=== PATIENT | male | born 1945 | race Caucasian/White ===

== ENCOUNTER 2017-06-11 13:33 | Emergency (ER) | payer MEDICARE ==
[~2017-06-11] VITALS: Ht 177.8 cm; Wt 100.9 kg
[~2017-06-11 13:33] MED LIST: CARB400T7 PO; CLIN-78 PO; CLOB15CR3 TOP; HYDR50TA3 PO; LOV30 SUBQ; METO-369 PO; PREG25CA PO; RES30 PO; ROSU40TA PO; WARF4TAB6 PO
[2017-06-11 13:43] VITALS: BP 142/72; PULSE 45; RESP 18; O2SAT 96
--- NOTE | 2017-06-11 13:49 | ED.REPORT ---
HPI-Chest Pain 40 and Over Date of Service Jun 11, 2017 ED Provider: Castillo Mueller MD The pt is a 71 y/o male with a hx of A-fib (on Coumadin), NSTEMI, bicuspid aortic valve, HTN, and CVA who presents to the ED from urgent care complaining of non-radiating, intermittent left sided chest pain, onset 4 days ago. His pain comes on randomly and is not relieved by any specific factors. He describes the pain as "vibrations" that lasts 2-3 minutes. He is not experiencing any pain currently in the ED. Associated sx include shortness of breath a week ago. His dyspnea is exacerbated by lying down and mildly relieved by sitting up. He has also noticed significant increase in shortness of breath with exertion or walking a short distance. He also reports productive cough with clear sputum. He denies hemoptysis, diaphoresis, lower extremity edema and weight change. Nursing Notes Stated Complaint: BREATHING/EKG/SENT BY Chief Complaint: Chest Pain Nursing Notes Reviewed: Yes (ITC, [place] [employer] (PIROX) not reconciled) Allergies: Coded Allergies: Procaine HCl (Verified Allergy, Severe, 08/22/16) facial swelling acetaminophen (Verified Allergy, Severe, 08/22/16) prilocaine (Verified Allergy, Severe, 08/22/16) Scheduled Carbamazepine ER (Carbamazepine ER) 400 Mg Tab.er.12h 400 MG PO Q12 Clindamycin (Clindamycin) 300 Mg Capsule 300 MG PO QID Clobetasol Propionate/Emoll (Clobetasol Emollient 0.05% Crm) 15 Gm Cream..g. 1 APPL TOP BID Enoxaparin (Lovenox) 30 Mg/0.3 Ml Syringe 30 MG SUBQ DAILY Furosemide (Furosemide) 20 Mg Tab 20 MG PO DAILY Hydrochlorothiazide (Hydrochlorothiazide) 50 Mg Tablet 50 MG PO DAILY Metoprolol Succinate ER (Metoprolol Succinate ER) 50 Mg Tab.er.24h 50 MG PO DAILY Potassium Chloride ER (Potassium Chloride ER) 10 Meq Tablet 10 MEQ PO DAILY TAKE WITH FOOD Pregabalin (Lyrica) 25 Mg Capsule 25 MG PO BID Rosuvastatin Calcium (Crestor) 40 Mg Tablet 40 MG PO DAILY Warfarin Sodium (Warfarin Sodium) 4 Mg Tablet 4 MG PO DAILY Scheduled PRN Temazepam (Temazepam) 30 Mg Cap 30 MG PO HS PRN PRN For Insomnia General Time Seen by MD: 13:58 Chief Complaint Chest pain Hx Obtained From: Patient Arrived By: Walk-in Sudden in Onset?: Yes Onset Occurred: 4 days ago Symptom Duration: Intermittent Location: : Chest left (describes it as "vibrations") Radiation: : Does not radiate Severity: Current: No pain currently Severity: Maximum: Moderate Past Medical History Past Medical History depression multilevel foraminal stenosis bicuspid aortic valve seizures atrial flutter, paroxysmal hypertension dyslipidemia ascending aortic aneurysm diverticulosis CVA nephrolithiasis Hx of NSTEMI melanoma Past Surgical History status post mechanical aortic valve replacement bilateral foot surgery left arm surgery Reports: Tonsillectomy Smoking History Smoker Current Status UNK Social History Alcohol Use: Denies alcohol use Drug Use: THC Ambulatory Status Independent Review of Systems Denies: weight change Respiratory: Reports: Dyspnea on exertion, Prod cough, clear, Shortness of breath, Denies: Prod cough, bloody Cardiovascular: Reports: Chest pain, Denies: Edema Skin: Denies Diaphoresis Complete sys rev & neg: except as marked. Physical Exam Initial Vital Signs Vital Signs (First) Date Time Temp Pulse Resp B/P Pulse Ox O2 Delivery O2 Flow Rate FiO2 06/11/17 13:43 36.8 45 18 142/72 96 06/11/17 14:38 Room Air Initial VS: Reviewed, Vital signs normal (bradycardic) Head / Eyes: Atraumatic, Normocephalic Extremities: Vascular intact, Neuro intact, No swelling, No tenderness Skin: Warm, Dry, No cyanosis Neurologic: Alert, Oriented, Nonfocal General/Constitutional: Awake, Alert, No acute distress, Well appearing, Cooperative Respiratory / Chest: Atraumatic, Breath sounds = bilat, No rales, No rhonchi, No wheezing Crackles at the bases bilaterally. No tachypnea Cardiovascular: Heart rate NL, No gallop, No rubs Heart Rate / Rhythm: Positive: Irregular rhythm No lower extremity edema Mild mechanical murmur Abdomen: Atraumatic, Soft, Non-tender, No guarding, No rebound Neck: Atraumatic, Supple, Full range of motion, No swelling, Non-tender, No JVD Interpretation & Diagnostics Lab Results Interpretation Result Diagram: 06/11/17 1405 06/11/17 1405 Test 06/11/17 14:05 White Blood Count 7.4th/mm3 (3.8-10.1) Red Blood Count 4.25mil/mm3 (4.40-5.80) Hemoglobin 13.6g/dL (13.8-17.2) Hematocrit 40.1% (41.0-50.0) Mean Corpuscular Volume 94.4fL (81-100) Mean Corpuscular Hemoglobin 32.0pg (27.0-35.0) Mean Corpuscular Hemoglobin Concent 33.9% (32.0-37.0) Red Cell Distribution Width 14.5% (12.3-15.4) Platelet Count 186bil/L (150-400) Neutrophils (%) (Auto) 56.3% (40-74) Lymphocytes (%) (Auto) 27.2% (14-46) Monocytes (%) (Auto) 10.8% (4-12) Eosinophils (%) (Auto) 4.9% (0-5) Basophils (%) (Auto) 0.7% (0-3) Prothrombin Time 22.3sec (8.1-12.5) Prothromb Time International Ratio 2.05ratio Sodium Level 141mEq/L (134-144) Potassium Level 3.5mEq/L (3.5-5.2) Chloride Level 100mEq/L (97-108) Carbon Dioxide Level 23mmol/L (18-29) Blood Urea Nitrogen 18mg/dL (8-27) Creatinine 0.98mg/dL (0.76-1.27) Estimat Glomerular Filtration Rate 80mL/min (>59) Glucose Level 114mg/dL (60-99) Calcium Level 9.2mg/dL (8.5-10.1) Magnesium Level 2.2mg/dL (1.6-2.6) Total Bilirubin 0.5mg/dL (0.0-1.2) Aspartate Amino Transf (AST/SGOT) 18U/L (0-50) Alanine Aminotransferase (ALT/SGPT) 15U/L (0-44) Alkaline Phosphatase 91U/L (25-160) Troponin T < 0.010ug/L (0.0-0.011) Pro-B-Type Natriuretic Peptide 617.8pg/mL (0-376) Total Protein 8.7g/dL (6.4-8.4) Albumin 4.3g/dL (3.4-5.0) Lab Results Interpretation: CBC normal CMP normal INR slightly subtherapeutic for mechanical valve BMP elevated, but not severely so ECG Interpretation ECG Interpretation: A-fib with slow ventricular response. Rate 41. RBBB and Left ventricular block. Improvement from last ECG in 2009 which showed a left bundle branch blck. Time: 13:58 Interpreted by: ED physician X-Ray Chest Interpretation Chest Xray Interpretation: IMPRESSION: ? Mild congestive heart failure. Dictated by: Tristian Amezquita M.D. on 06/11/2017 at 14:24 Approved by: Tristian Amezquita M.D. on 06/11/2017 at 14:25 View: Portable, 1 view Interpretation / Wet Read by: Interpret - Radiologist Re-Eval/Medical Decision Med Decision/Clinical Course This is a 71-year-old male history of valvular disease test. Valve replacement he presents complaining of some increasing dyspnea, nocturnal dyspnea, dyspnea on exertion concerning for possible congestive heart failure. He has also had a very atypical transient chest discomfort lasting only seconds. He is anticoagulated on warfarin. 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 Carrera and just recently (02/2017) had an echocardiogram with a preserved EF and adequate valve function, but with dilated right ventricle, and an inability to evaluate for diastolic dysfunction for technical reasons. On examination clinically appears well and notes tremors. He is ambulatory,'s vitals are notable for A. fib with slow ventricular response on metoprolol, he has a few scattered rails without JVD or peripheral edema. Chest x-ray is also suggestive for early mild CHF. EKG reveals atrial fibrillation with slow ventricular response, chronic right bundle branch block, but no acute ischemic changes or interval change or revealed Blood work reveals a normal troponin, slightly subtherapeutic INR which suggested to the INR clinic. His BNP is mildly elevated. This point the patient received a dose of furosemide, diuresis and feels improved. I am not finding evidence of acute coronary syndrome or need for serial enzymes symptoms are atypical, been going on for days, troponin EKG not reveal clear finds a luanne ischemia, but I do suspect a component of mild CHF. The plan is initiation of a low-dose of furosemide and follow-up with his power generation turbine room operator as an outpatient. I am not finding indication for emergent admission. Patient is comfortable with this. Plan is discharge on oral lip of furosemide 40 mg for 3 days, then reduction 20 mg once a day, instead her potassium supplementation. He also has a significant bradycardia occasionally as low as 38 generally in the 40-always tolerated this with no clinical symptoms in the department (the patient is doing fairly well limited department, I doubt the bradycardia is the cause of the patient's reported dyspnea). I am asking from the hold his metoprolol in the short-term until he can follow-up for readjustment with Dr. Carrera. Routine and return precautions reviewed. Source of Hx: Old records Time of Eval: 14:05 Re-Evaluation/Progress Note: Rechecked pt. Discussed lab results and informed the pt X-ray is pending. He understands. All questions answered. Time of Eval: 15:55 Patient Status: Condition improved Re-Evaluation/Progress Note: Rechecked pt. Discussed lab results, imaging results, diagnosis and plan to discharge. Pt understands and agrees with the plan. F/U instruction and RTER warning given. All questions addressed. Differential Diagnosis: Positive: Congestive heart failure, Dysrhythmia ( chronic Afib), Pulmonary edema, Negative: Acute coronary syndrome, Gun shot wound chest, Myocardial infarction, Myocarditis, Peptic ulcer disease, Pneumonia, Pneumothorax, Pulmonary embolism, Rib fracture Counseled Regarding: Diagnosis, Lab results, Need for follow-up, When/why to return to ED Discharge & Departure Primary Impression: Congestive heart failure Congestive heart failure type: unspecified congestive heart failure type Congestive heart failure chronicity: unspecified congestive heart failure chronicity Qualified Code: I50.9 - Heart failure, unspecified Additional Impressions: Chronic atrial fibrillation Subtherapeutic international normalized ratio (INR) Atrial fibrillation with slow ventricular response Disposition: Home Discharge Condition All VS Reviewed: Yes Condition: Stable Additional Instructions: 1. Your symptoms, exam, and tests suggest mild congestive heart failure causing your symptoms. 2. Take the water pill furosemide 20mg twice a day for 3 days, then take one tab a day after that. Weigh your self daily (if your weight suddenly goes up by 4-5 pounds, return to twice a day dosing). Take a potassium vitamin 10MEq daily while on furosemide. 3. Your heart rate was on the very low side (low 40's here). Stop your metoprolol for now (it will likely be resumed by Dr. Carrera after a short period, possibly at a reduced dose) 4. Your INR was slightly low (2.0), continue your warfarin but call the [facility] to adjust dosing. 5. Call Dr. Carrera's office for an appointment and recheck. 6. Return if new worsening symptoms Referrals: Zheng Ryder MD (PCP) Leroy Carrera MDibolga Attestation Portions of this note were transcribed by Angelia Loaiza. I,, personally performed the history,physical exam and medical decision-making;I reviewed and confirmed the accuracy of the information in the transcribed note. Signed by Tasneem Veras. 06/11/17 copies to: Zheng Ryder MD; Leroy Carrera MD, Matthew F MD Jun 11, 2017 13:49 Angelia Loaiza Jun 11, 2017 14:05
[2017-06-11] MEDS ORDERED: Furosemide 10 mg/mL 2 mL Inj IVPUSH ONE (14:15)
[2017-06-11 14:22] LABS: BASOPHILS % (AUTO) 0.7 % (0-3); EOSINOPHILS % (AUTO) 4.9 % (0-5); MONOCYTES % (AUTO) 10.8 % (4-12); Mean Corpuscular Volume 94.4 fL (81-100); NEUTROPHILS % (AUTO) 56.3 % (40-74); Platelet Count 186 bil/L (150-400)
--- NOTE | 2017-06-11 14:27 | DRSVH ---
PROCEDURE: X-RAY CHEST ONE VIEW, PORTABLE ([id number]) INDICATIONS: 71 year-old male with chest pain. TECHNIQUE: One view of the chest was acquired. COMPARISON: [facility], CR, XR CHEST 2VW, 01/08/2017, 13:12. [facility], CR , CHEST 1VW (PORTABLE), 02/03/2010, 5:38. FINDINGS: Surgical changes and devices: None. Lungs and pleura: Left lower lobe atelectasis. Mild bilateral perihilar infiltrates suggesting mild pulmonary edema. No pleural effusions or pneumothorax. Mediastinum: Mediastinal contours appear normal. Heart size is normal. Bones and chest wall: No suspicious bony lesions. Overlying soft tissues appear unremarkable. IMPRESSION: ? Mild congestive heart failure. Dictated by: Tristian Amezquita M.D. on 06/11/2017 at 14:24 Approved by: Tristian Amezquita M.D. on 06/11/2017 at 14:25
[2017-06-11 14:35] LABS: INR 2.05 ratio
[2017-06-11 14:38] VITALS: BP 125/78; PULSE 42; RESP 14; O2SAT 94
[2017-06-11 14:50] LABS: TROPONIN T < 0.010 ug/L (0.0-0.011)
[2017-06-11 14:54] LABS: Magnesium 2.2 mg/dL (1.6-2.6)
[2017-06-11 16:11] VITALS: BP 118/50; PULSE 37; O2SAT 95
[2017-06-11] MEDS ORDERED: FUR20 PO (16:12)
[2017-06-11] MEDS ORDERED: POTA10TA12 PO (16:12)
== END 2017-06-11 16:22 | disposition home or self-care (01) ==
LOC: SED 13:33
DX: I11.0 Hypertensive heart disease with heart failure (principal); I50.9 Heart failure, unspecified; I48.2 Chronic atrial fibrillation; R79.1 Abnormal coagulation profile; F32.9 Major depressive disorder, single episode, unspecified; Z79.01 Long term (current) use of anticoagulants; Z86.73 Personal history of transient ischemic attack (TIA), and cerebral infarction without residual deficits; I21.4 Non-ST elevation (NSTEMI) myocardial infarction; Z88.8 Allergy status to other drugs, medicaments and biological substances
CPT/HCPCS: 36415; 71010; 80053; 83735; 83880; 84484; 85025; 85610; 93005; 96374; 99285; G0463; J1940

== ENCOUNTER 2017-06-17 14:55 | Emergency (ER) | payer MEDICARE ==
[~2017-06-17] VITALS: Ht 177.8 cm; Wt 97.7 kg
[~2017-06-17 14:55] MED LIST changes: +FUR20 PO; +POTA10TA12 PO
[2017-06-17 15:04] VITALS: BP 149/95; PULSE 43; RESP 9; O2SAT 96
--- NOTE | 2017-06-17 15:11 | ED.REPORT ---
HPI-General Illness Date of Service Jun 17, 2017 ED Provider: Severiano Delarosa MD Patient is a 71 year old male with an extensive cardiac history including CHF, aortic valve replacement, atrial fibrillation on Coumadin, hypertension and TIA who presents to the ED via EMS after becoming lightheaded while trying to stand at the clinic. Per report, the patient was bradycardic at the clinic but was asymptomatic until he tried to stand. On scene, the patient's heart rate was 49 and medics gave .5mg of Atropine. The patient also reports shortness of breath and minor chest pain. He states that when he is sitting, his symptoms improve. Patient was seen last week in the ED for similar symptoms. Nursing Notes Stated Complaint: BRADYCARDIA Chief Complaint: Dysrhythmia/Cardiac Nursing Notes Reviewed: Yes Allergies: Coded Allergies: Procaine HCl (Verified Allergy, Severe, 08/22/16) facial swelling acetaminophen (Verified Allergy, Severe, 08/22/16) prilocaine (Verified Allergy, Severe, 08/22/16) Scheduled Carbamazepine ER (Carbamazepine ER) 400 Mg Tab.er.12h 400 MG PO Q12 Clindamycin (Clindamycin) 300 Mg Capsule 300 MG PO QID Clobetasol Propionate/Emoll (Clobetasol Emollient 0.05% Crm) 15 Gm Cream..g. 1 APPL TOP BID Enoxaparin (Lovenox) 30 Mg/0.3 Ml Syringe 30 MG SUBQ DAILY Furosemide (Furosemide) 20 Mg Tab 20 MG PO DAILY Furosemide (Furosemide) 20 Mg Tab 20 MG PO DAILY Hydrochlorothiazide (Hydrochlorothiazide) 50 Mg Tablet 50 MG PO DAILY Magnesium Chloride (Slow-Mag) 64 Mg Tablet 64 MG PO BID Metoprolol Succinate ER (Metoprolol Succinate ER) 50 Mg Tab.er.24h 50 MG PO DAILY Potassium Chloride ER (Potassium Chloride ER) 10 Meq Tablet 10 MEQ PO DAILY TAKE WITH FOOD Pregabalin (Lyrica) 25 Mg Capsule 25 MG PO BID Rosuvastatin Calcium (Crestor) 40 Mg Tablet 40 MG PO DAILY Spironolactone (Aldactone) 25 Mg Tablet 25 MG PO DAILY Warfarin Sodium (Warfarin Sodium) 4 Mg Tablet 4 MG PO DAILY Scheduled PRN Temazepam (Temazepam) 30 Mg Cap 30 MG PO HS PRN PRN For Insomnia General Time Seen by MD: 15:10 Chief Complaint Other (lightheaded) Hx Obtained From: Patient Arrived By: Ambulance Sudden in Onset?: Yes Onset Occurred: Just prior to arrival Location: : Chest Quality: Painful Severity: Current: Mild Recent Healthcare: Recent doctor visit Similar Sx Previous: Yes Past Medical History Past Medical History depression multilevel foraminal stenosis seizures atrial flutter, paroxysmal dyslipidemia ascending aortic aneurysm diverticulosis nephrolithiasis Hx of NSTEMI melanoma Reports: Hypertension, Transient ischemic attack Past Surgical History status post mechanical aortic valve replacement bilateral foot surgery left arm surgery Reports: Tonsillectomy Smoking History Smoker Current Status UNK Social History Alcohol Use: Denies alcohol use Drug Use: THC Ambulatory Status Independent Review of Systems Full Review of Systems Respiratory: Reports: Shortness of breath Cardiovascular: Reports: Chest pain Neurologic: Reports: Lightheaded, Problem walking Complete sys rev & neg: except as marked. Physical Exam Vital Signs Vital Signs Date Time Temp Pulse Resp B/P Pulse Ox O2 Delivery O2 Flow Rate FiO2 06/17/17 17:46 36.7 58 12 143/71 98 Room Air 06/17/17 17:12 54 10 142/71 97 Room Air 06/17/17 15:26 43 9 108/83 97 Nasal Cannula 3 06/17/17 15:04 37 43 9 149/95 96 Nasal Cannula 3 Initial VS: Reviewed General/Constitutional: Awake, Alert Head / Eyes: Atraumatic, Normocephalic Respiratory / Chest: Atraumatic, Breath sounds NL, Breath sounds = bilat, No respiratory distress Heart Rate / Rhythm: Positive: Bradycardia, Irregular rhythm prominent aortic click across the precordium Abdomen: Atraumatic, Soft, Non-tender Upper Extremities Upper Extremity / MS: Atraumatic, Full range of motion Skin: Atraumatic, Color NL, No rash, Warm, Dry Neurologic: Oriented X3, Speech NL Interpretation & Diagnostics Lab Results Interpretation Result Diagram: 06/17/17 1525 06/17/17 1525 Test 06/17/17 15:25 White Blood Count 6.8th/mm3 (3.8-10.1) Red Blood Count 4.54mil/mm3 (4.40-5.80) Hemoglobin 14.4g/dL (13.8-17.2) Hematocrit 42.3% (41.0-50.0) Mean Corpuscular Volume 93.2fL (81-100) Mean Corpuscular Hemoglobin 31.7pg (27.0-35.0) Mean Corpuscular Hemoglobin Concent 34.0% (32.0-37.0) Red Cell Distribution Width 14.0% (12.3-15.4) Platelet Count 206bil/L (150-400) Neutrophils (%) (Auto) 51.7% (40-74) Lymphocytes (%) (Auto) 29.7% (14-46) Monocytes (%) (Auto) 10.9% (4-12) Eosinophils (%) (Auto) 7.0% (0-5) Basophils (%) (Auto) 0.6% (0-3) Prothrombin Time 21.3sec (8.1-12.5) Prothromb Time International Ratio 1.96ratio Sodium Level 137mEq/L (134-144) Potassium Level 2.9mEq/L (3.5-5.2) Chloride Level 91mEq/L (97-108) Carbon Dioxide Level 30mmol/L (18-29) Blood Urea Nitrogen 21mg/dL (8-27) Creatinine 0.93mg/dL (0.76-1.27) Estimat Glomerular Filtration Rate 85mL/min (>59) Glucose Level 104mg/dL (60-99) Calcium Level 9.3mg/dL (8.5-10.1) Magnesium Level 2.2mg/dL (1.6-2.6) Total Bilirubin 0.5mg/dL (0.0-1.2) Aspartate Amino Transf (AST/SGOT) 21U/L (0-50) Alanine Aminotransferase (ALT/SGPT) 15U/L (0-44) Alkaline Phosphatase 92U/L (25-160) Troponin T < 0.010ug/L (0.0-0.011) Pro-B-Type Natriuretic Peptide 391.0pg/mL (0-376) Total Protein 8.8g/dL (6.4-8.4) Albumin 4.5g/dL (3.4-5.0) Thyroid Stimulating Hormone (TSH) 1.740uIU/mL (0.450-4.500) ECG Interpretation ECG Interpretation: atrial fibrillation, rate 50 RBBB and LAFB probable LVH Time: 15:07 Interpreted by: ED physician X-Ray Chest Interpretation Chest Xray Interpretation: IMPRESSION: Mild interstitial prominence which could reflect a prior smoking history but the appearance also is consistent with a mild pulmonary edema pattern. No pneumonia found. Prior sternotomy, reported prior heart valve replacement surgery. Dictated by: Rogerio Walden M.D. on 06/17/2017 at 16:02 Approved by: Rogerio Walden M.D. on 06/17/2017 at 16:03 Interpretation / Wet Read by: Interpret - Radiologist Re-Eval/Medical Decision Med Decision/Clinical Course Patient presents with dizziness, thought to be due to dehydration and electrolyte abnormalities. The case is discussed with the patient's primary psychiatric assistant who identifies the patient has chronic bradycardia and felt that there must be some underlying issue, after reviewing labs a augmented medication regiment is recommended by cardiology. The patient is feeling better after IV fluids and electrolyte repletion. Passed a road test. Return and follow-up precautions given. Time of Eval: 16:11 Patient Status: Condition improved Time of Eval: 17:11 Re-Evaluation/Progress Note: Patient completed road test. Discussed plan to consult cardiology and discharge pending. Time of Eval: 17:32 Re-Evaluation/Progress Note: Discussed medication changes and plan for discharge with out patient follow up. Patient understands and agrees to plan. All questions were addressed. Consultation #1: Referral / Consult Name: Leroy Carrera MD Consulted With: Cardiology Call Returned at: 15:32 Note: Consult with Dr. Carrera, cardiology, who recommends working the patient up, could be done as an outpatient if symtpoms resolve. Consultation #2: Referral / Consult Name: Leroy Carrera MD Consulted With: Cardiology Call Returned at: 17:16 Note: Consult with Dr. Carrera, psychiatric assistant, who recommends changing Furosemid to 20mg and start Aldactone 25mg daily along with magnesium BID. Patient needs to have repeat labs in 7 days and ziopatch for heart rate. Counseled Regarding: Diagnosis, Lab results, Need for follow-up, When/why to return to ED Discharge & Departure Primary Impression: Bradycardia Additional Impressions: Lightheaded Dehydration Disposition: Home Discharge Condition All VS Reviewed: Yes Condition: Stable Patient Instructions: Bradycardia (ED) Additional Instructions: Your symptoms were likely due to dehydration. Take 20mg of Furosemide and start taking 25mg of Aldactone daily. You should also start taking magnesium two times a day, as prescribed. You will need to follow up with your psychiatric assistant/primary care physician for repeat labs in 7 days. Return to the emergency department if you develop any new or concerning symptoms including chest pain, shortness of breath, feeling faint or lightheaded or your symptoms worsen. Referrals: Zheng Ryder MD (PCP) Tasneem Attestation Portions of this note were transcribed by Rebekah Mays. I, Dr. Lavonne Chavez personally performed the history, physical exam and medical decision-making; I reviewed and confirmed the accuracy of the information in the transcribed note. Signed by: Tasneem Tuttle, 06/17/17 copies to: Zheng Ryder MD, Timothy S DO Jun 17, 2017 15:11 Shelby Mays Jun 17, 2017 15:28
[2017-06-17] MEDS ORDERED: Ondansetron 2 mg/mL 2 mL Inj IVPUSH ONE (15:25)
[2017-06-17 15:26] VITALS: BP 108/83; PULSE 43; RESP 9; O2SAT 97
[2017-06-17] MEDS ORDERED: 0.9% Sodium Chloride 250 ML IV ONE (15:30)
[2017-06-17 15:33] LABS: BASOPHILS % (AUTO) 0.6 % (0-3); MONOCYTES % (AUTO) 10.9 % (4-12); Mean Corpuscular Hemoglobin 31.7 pg (27.0-35.0); Mean Corpuscular Volume 93.2 fL (81-100); NEUTROPHILS % (AUTO) 51.7 % (40-74); Platelet Count 206 bil/L (150-400)
[2017-06-17 15:36] LABS: INR 1.96 ratio
[2017-06-17 16:01] LABS: TROPONIN T < 0.010 ug/L (0.0-0.011)
[2017-06-17 16:03] LABS: Magnesium 2.2 mg/dL (1.6-2.6)
[2017-06-17] MEDS ORDERED: Potassium Chloride 20 mEq SR Tablet PO ONE (16:05)
--- NOTE | 2017-06-17 16:05 | DRSVH ---
PROCEDURE: X-RAY CHEST ONE VIEW, PORTABLE ([id number]) INDICATIONS: dyspnea TECHNIQUE: One view of the chest was acquired. COMPARISON: [facility], CR, XR CHEST 1VW (PORTABLE), 06/11/2017, 13:59. [facility], CR, XR CHEST 2VW, 01/08/2017, 13:12. FINDINGS: Surgical changes and devices: Sternotomy wires, presumed prior CABG versus cardiac valve replacement surgery. Lungs and pleura: No pleural effusions or pneumothorax. Lungs are mildly edematous. Mediastinum: Mediastinal contours appear normal. Heart size is normal. Bones and chest wall: No suspicious bony lesions. Overlying soft tissues appear unremarkable. IMPRESSION: Mild interstitial prominence which could reflect a prior smoking history but the appearan ce also is consistent with a mild pulmonary edema pattern. No pneumonia found. Prior sternotomy, re ported prior heart valve replacement surgery. Dictated by: Rogerio Walden M.D. on 06/17/2017 at 16:02 Approved by: Rogerio Walden M.D. on 06/17/2017 at 16:03
[2017-06-17 17:12] VITALS: BP 142/71; PULSE 54; RESP 10; O2SAT 97
[2017-06-17] MEDS ORDERED: FUR20 PO (17:30)
[2017-06-17] MEDS ORDERED: SPIR25TA PO (17:30)
[2017-06-17 17:46] VITALS: BP 143/71; PULSE 58; RESP 12; O2SAT 98
[2017-06-17] MEDS ORDERED: SLO64 PO (17:48)
== END 2017-06-17 17:47 | disposition home or self-care (01) ==
LOC: EDBD 14:55 → SED 14:55
DX: R00.1 Bradycardia, unspecified (principal); E86.0 Dehydration; R42 Dizziness and giddiness; R07.9 Chest pain, unspecified; R06.02 Shortness of breath; I11.0 Hypertensive heart disease with heart failure; I50.9 Heart failure, unspecified; I25.2 Old myocardial infarction; F32.9 Major depressive disorder, single episode, unspecified; E78.5 Hyperlipidemia, unspecified; Z86.73 Personal history of transient ischemic attack (TIA), and cerebral infarction without residual deficits; Z85.820 Personal history of malignant melanoma of skin; Z90.89 Acquired absence of other organs; Z98.890 Other specified postprocedural states; Z95.4 Presence of other heart-valve replacement; Z79.01 Long term (current) use of anticoagulants; Z88.5 Allergy status to narcotic agent; Z88.8 Allergy status to other drugs, medicaments and biological substances
CPT/HCPCS: 36415; 71010; 80053; 83735; 83880; 84443; 84484; 85025; 85610; 93005; 96374; 99285; G0463; J2405; J7050